=== PATIENT | female | born 1995 | race Caucasian/White ===

== ENCOUNTER 2017-09-12 18:41 | Emergency (ER) | payer OTHER ==
[~2017-09-12] VITALS: Ht 180.3 cm; Wt 68.0 kg
[2017-09-12] MEDS ORDERED: ADVIL (18:49)
[2017-09-12] MEDS ORDERED: IBUPROFEN (18:49)
--- NOTE | 2017-09-12 19:06 | NUR ---
sbar report to eliza castillo
--- NOTE | 2017-09-12 19:35 | NUR ---
Dr. Garces at bedside for MSE.
[2017-09-12] MEDS ORDERED: KETOROLAC TROMETHAMINE 15 MG INJ IV ONE (19:45)
[2017-09-12] MEDS ORDERED: IV NORMAL SALINE 1000 ML BAG IV ONE (19:45)
[2017-09-12] MEDS ORDERED: KETOROLAC TROMETHAMINE 15 MG INJ ONE (19:50)
--- NOTE | 2017-09-12 20:10 | NUR ---
Patient came to ER with mother, c/o abdominal pain from left pelvis to left lower abdomen, reports was at home studying for finals. Blood drawn by RN, IV in place and infusing normal saline, all meds ordered administered.
[2017-09-12 20:22] LABS: *BILIRUBIN,URIN NEGATIVE (NEGATIVE); *BLOOD, URINE Trace-intact (NEGATIVE); *CLARITY,URINE CLEAR (CLEAR); *COLOR,URINE YELLOW (YELLOW); *KETONES,URINE NEGATIVE (NEGATIVE); *PROTEIN,URINE NEGATIVE (NEGATIVE); *UROBILINOGEN,URINE 0.2 E.U./dl (NORMAL); LEUKOCYTE ESTERASE ,URINE NEGATIVE (NEGATIVE); NITRITE, URINE NEGATIVE (NEGATIVE); PH,URINE 7.5 (5.0-8.0); UGLUCOSE NEGATIVE (NEGATIVE)
[2017-09-12 20:24] LABS: BASOPHILS # (AUTO) 0.1 K/uL (0.0-8.0); BASOPHILS % (AUTO) 0.9 % (0.0-2.0); EOSINOPHILS # (AUTO) 0.1 K/uL (0.0-0.7); EOSINOPHILS % (AUTO) 2.1 % (0.0-7.0); HEMATOCRIT 43.5 % (31.2-41.9); HEMOGLOBIN 14.8 g/dL (10.9-14.3); LYMPHOCYTES # (AUTO) 1.9 K/uL (20.0-40.0); MEAN CORPUSCULAR HEMOGLOBIN 31.3 uug (24.7-32.8); MEAN CORPUSCULAR HGB CONC 34 g/dL (32.3-35.6); MEAN CORPUSCULAR VOLUME 91.7 fL (75.5-95.3); MONOCYTES # (AUTO) 0.4 K/uL (2.0-10.0); MONOCYTES % (AUTO) 7.2 % (0.0-11.0); NEUTROPHILS # (AUTO) 3.3 K/uL (1.8-8.9); NEUTROPHILS % (AUTO) 56.8 % (38.5-71.5); PLATELET COUNT (AUTO) 167 K/uL (179-408); RED BLOOD CELL COUNT(AUTO) 4.74 MIL/uL (3.63-4.92); WHITE BLOOD COUNT (AUTO) 5.8 K/uL (3.8-11.8)
[2017-09-12 20:27] LABS: BACTERIA,URINE NONE SEEN /HPF (NONE SEEN); RBC,URINE 0-3 /HPF (0-3); SQUAMOUS EPITHELIAL CELL,UR FEW /HPF (NONE SEEN); WBC,URINE 0-3 /HPF (0-3)
[2017-09-12 20:31] LABS: CREATININE 0.7 mg/dL (0.6-1.3); POTASSIUM 3.8 mmol/L (3.5-5.1)
[2017-09-12 20:37] LABS: BILIRUBIN,DIRECT 0.1 mg/dL (0.0-0.2); BILIRUBIN,TOTAL 0.8 mg/dL (0.2-1.0)
--- NOTE | 2017-09-12 20:40 | NUR ---
Patient reports feeling a little better, pain now a 5.
--- NOTE | 2017-09-12 21:20 | NUR ---
Ultrasound at bedside.
--- NOTE | 2017-09-12 22:45 | NUR ---
Patient discharged to home in stable conditon. Written and verbal after care instructions given. Patient verbalizes understanding of instructions. IV discontinued. Patient provided with lab and imaging results, and ultrasound CD. Patient ambulated out of ER with steady gait, VSS, no acute signs of distress, all belongings taken.
[2017-09-12 23:03] VITALS: BP 125/70
== END 2017-09-12 22:45 | disposition home or self-care (01) ==
LOC: ER 18:42
DX: N23 Unspecified renal colic (principal); Z79.1 Long term (current) use of non-steroidal anti-inflammatories (NSAID); Z79.899 Other long term (current) drug therapy
CPT/HCPCS: 36415; 70030-TC; 76770; 83690; 84703; 85025; 87086; A4663; J1885; J7030

== ENCOUNTER 2018-04-23 14:54 | Emergency (ER) | payer OTHER ==
[~2018-04-23] VITALS: Ht 180.3 cm; Wt 68.0 kg
[~2018-04-23 14:54] MED LIST: ADVIL; IBUPROFEN
[2018-04-23 15:23] LABS: BASOPHILS # (AUTO) 0.1 K/uL (0.0-8.0); BASOPHILS % (AUTO) 0.9 % (0.0-2.0); EOSINOPHILS # (AUTO) 0.1 K/uL (0.0-0.7); EOSINOPHILS % (AUTO) 0.9 % (0.0-7.0); HEMATOCRIT 39.6 % (31.2-41.9); HEMOGLOBIN 13.7 g/dL (10.9-14.3); LYMPHOCYTES # (AUTO) 1.3 K/uL (20.0-40.0); LYMPHOCYTES % (AUTO) 18.8 % (20.5-51.5); MEAN CORPUSCULAR HEMOGLOBIN 32.3 uug (24.7-32.8); MEAN CORPUSCULAR HGB CONC 35 g/dL (32.3-35.6); MEAN CORPUSCULAR VOLUME 93.2 fL (75.5-95.3); MONOCYTES # (AUTO) 0.5 K/uL (2.0-10.0); MONOCYTES % (AUTO) 7.3 % (0.0-11.0); NEUTROPHILS # (AUTO) 4.9 K/uL (1.8-8.9); NEUTROPHILS % (AUTO) 72.1 % (38.5-71.5); PLATELET COUNT (AUTO) 135 K/uL (179-408); RED BLOOD CELL COUNT(AUTO) 4.25 MIL/uL (3.63-4.92); WHITE BLOOD COUNT (AUTO) 6.7 K/uL (3.8-11.8)
[2018-04-23 15:44] LABS: CARBON DIOXIDE 27 mmol/L (21-32); CHLORIDE 105 mmol/L (98-107); CREATININE 0.7 mg/dL (0.6-1.3); GLUCOSE 96 mg/dL (74-106); POTASSIUM 4.2 mmol/L (3.5-5.1); UREA NITROGEN, BLOOD 18 mg/dL (7-18)
[2018-04-23 17:03] VITALS: BP 118/67
--- NOTE | 2018-04-23 17:09 | NUR ---
Patient discharged to home in stable conditon. Written and verbal after care instructions given. Patient verbalizes understanding of instructions. Copy of EKG,Labs,Xray given to patient.
== END 2018-04-23 17:08 | disposition home or self-care (01) ==
LOC: ER 14:54
DX: S70.02XA Contusion of left hip, initial encounter (principal); W19.XXXA Unspecified fall, initial encounter; Y93.89 Activity, other specified; Y92.89 Other specified places as the place of occurrence of the external cause; Y99.8 Other external cause status
CPT/HCPCS: 36415; 72170; 85025; 93005; A4663

== ENCOUNTER 2020-11-08 13:14 | Emergency (ER) | payer OTHER ==
[~2020-11-08] VITALS: Ht 180.3 cm; Wt 71.2 kg
--- NOTE | 2020-11-08 13:40 | NUR ---
Dr Oseguera at the bedside for MSE.
[2020-11-08 13:57] LABS: *BILIRUBIN,URIN NEGATIVE (NEGATIVE); *CLARITY,URINE CLEAR (CLEAR); *COLOR,URINE YELLOW (YELLOW); *KETONES,URINE NEGATIVE (NEGATIVE); *UROBILINOGEN,URINE 0.2 E.U./dl (NORMAL); LEUKOCYTE ESTERASE ,URINE NEGATIVE (NEGATIVE); NITRITE, URINE NEGATIVE (NEGATIVE); UGLUCOSE NEGATIVE (NEGATIVE)
[2020-11-08 14:03] LABS: *BLOOD, URINE TRACE (NEGATIVE)
[2020-11-08 14:15] LABS: BACTERIA,URINE NONE SEEN /HPF (NONE SEEN); SQUAMOUS EPITHELIAL CELL,UR FEW /HPF (NONE SEEN); WBC,URINE 0-3 /HPF (0-3)
[2020-11-08 14:18] LABS: BASOPHILS % (AUTO) 0.8 % (0.0-2.0); EOSINOPHILS # (AUTO) 0.1 K/uL (0.0-0.7); EOSINOPHILS % (AUTO) 1.9 % (0.0-7.0); HEMATOCRIT 38.1 % (31.2-41.9); HEMOGLOBIN 12.9 g/dL (10.9-14.3); LYMPHOCYTES # (AUTO) 1.5 K/uL (20.0-40.0); LYMPHOCYTES % (AUTO) 31.8 % (20.5-51.5); MEAN CORPUSCULAR HEMOGLOBIN 31.2 uug (24.7-32.8); MEAN CORPUSCULAR HGB CONC 34 g/dL (32.3-35.6); MONOCYTES # (AUTO) 0.3 K/uL (2.0-10.0); NEUTROPHILS # (AUTO) 2.8 K/uL (1.8-8.9); NEUTROPHILS % (AUTO) 58.5 % (38.5-71.5); PLATELET COUNT (AUTO) 158 K/uL (179-408); RED BLOOD CELL COUNT(AUTO) 4.14 MIL/uL (3.63-4.92); WHITE BLOOD COUNT (AUTO) 4.7 K/uL (3.8-11.8)
[2020-11-08 14:33] LABS: CARBON DIOXIDE 24 mmol/L (21-32); CHLORIDE 103 mmol/L (98-107); CREATININE 0.7 mg/dL (0.6-1.3); GLUCOSE 102 mg/dL (74-106); POTASSIUM 3.9 mmol/L (3.5-5.1); UREA NITROGEN, BLOOD 16 mg/dL (7-18)
[2020-11-08 14:40] LABS: ALANINE AMINOTRANSFERASE 19 U/L (14-59); ALKALINE PHOSPHATASE 42 U/L (50-136); ASPARTATE AMINOTRANSFERASE 13 U/L (15-37); BILIRUBIN,DIRECT 0.1 mg/dL (0.0-0.2); BILIRUBIN,TOTAL 0.6 mg/dL (0.2-1.0); LIPASE 84 U/L (73-393); TOTAL PROTEIN, SERUM 7.2 g/dL (6.4-8.2)
--- NOTE | 2020-11-08 14:55 | NUR ---
Pt resting in bed, NAD noted, awaiting test results.
[2020-11-08 15:13] VITALS: BP 120/78
--- NOTE | 2020-11-08 15:13 | NUR ---
Patient discharged to home in stable condition. Written and verbal after care instructions given. Patient verbalizes understanding of instructions. Stressed follow up or return to ER for worsening s/s.
== END 2020-11-08 15:14 | disposition home or self-care (01) ==
LOC: ER 13:14
DX: R10.2 Pelvic and perineal pain (principal)
CPT/HCPCS: 36415; 76856; 83690; 85025; A4663; J7030

== ENCOUNTER 2021-01-18 20:18 | Emergency (ER) | payer OTHER ==
[~2021-01-18] VITALS: Ht 180.3 cm; Wt 71.2 kg
--- NOTE | 2021-01-18 20:22 | NUR ---
Pt came in today after fainting and having a fall down the stairs at the work. Pt said she passed out on the stairs and doesn't remember what happened. Pt has left wrist pain 5/10. Pt's boyfriend is at the bedside. Pt. is stable, no signs of distress, no headache or vision changes. Will continue to monitor.
[2021-01-18] MEDS ORDERED: HYDROCODONE/APAP 5-325MG TABLET PO ONE ×2 (20:45→22:15)
[2021-01-18] MEDS ORDERED: HYDROCODONE/APAP 5-325MG TABLET ONE ×2 (20:52→22:14)
--- NOTE | 2021-01-18 21:04 | NUR ---
Patient taken to CT
[2021-01-18] MEDS ORDERED: HYDR-3980 PO (22:01)
--- NOTE | 2021-01-18 22:11 | NUR ---
Patient discharged to home in stable condition. Written and verbal after care instructions given. Patient verbalizes understanding of instructions. Stressed follow up or return to ER for worsening s/s. Walks with steady gait. No signs of distress. Boyfriend is driving her home.
[2021-01-18 22:18] VITALS: BP 128/65
== END 2021-01-18 22:19 | disposition home or self-care (01) ==
LOC: ER 20:19
DX: S06.0X0A Concussion without loss of consciousness, initial encounter (principal); S52.502A Unspecified fracture of the lower end of left radius, initial encounter for closed fracture; S52.602A Unspecified fracture of lower end of left ulna, initial encounter for closed fracture; W10.9XXA Fall (on) (from) unspecified stairs and steps, initial encounter; Y92.89 Other specified places as the place of occurrence of the external cause; Z87.442 Personal history of urinary calculi
CPT/HCPCS: 70450; 72125; 73110; A4663

== ENCOUNTER 2021-02-21 01:04 | Emergency (ER) | payer OTHER ==
[~2021-02-21] VITALS: Ht 180.3 cm; Wt 66.7 kg
[~2021-02-21 01:04] MED LIST changes: -ADVIL; +HYDR-3980 PO; -IBUPROFEN
[2021-02-21] MEDS ORDERED: ACETAMINOPHEN ES 500 MG TABLET PO ONE (01:15)
[2021-02-21] MEDS ORDERED: IV NORMAL SALINE 1000 ML BAG IV ONE (01:15)
--- NOTE | 2021-02-21 01:20 | NUR ---
Patient walked into ER c/o abdominal pain describing pain as burning pain that started about 5hrs ago with rectal bleeding stating "I was in the bathroom and bright red blood came out."
[2021-02-21 01:23] LABS: HEMATOCRIT 41.1 % (31.2-41.9); MEAN CORPUSCULAR HEMOGLOBIN 31.4 uug (24.7-32.8); MEAN CORPUSCULAR VOLUME 91.5 fL (75.5-95.3); PLATELET COUNT (AUTO) 187 K/uL (179-408)
[2021-02-21 01:35] LABS: CARBON DIOXIDE 30 mmol/L (21-32); CHLORIDE 104 mmol/L (98-107); CREATININE 0.7 mg/dL (0.6-1.3); GLUCOSE 102 mg/dL (74-106); UREA NITROGEN, BLOOD 25 mg/dL (7-18)
[2021-02-21 01:50] LABS: ALANINE AMINOTRANSFERASE 26 U/L (14-59); ALKALINE PHOSPHATASE 49 U/L (50-136); ASPARTATE AMINOTRANSFERASE 16 U/L (15-37); BILIRUBIN,DIRECT 0.1 mg/dL (0.0-0.2); BILIRUBIN,TOTAL 0.3 mg/dL (0.2-1.0); LIPASE 109 U/L (73-393); TOTAL PROTEIN, SERUM 7.8 g/dL (6.4-8.2)
[2021-02-21 02:10] LABS: *BILIRUBIN,URIN NEGATIVE (NEGATIVE); *CLARITY,URINE CLEAR (CLEAR); *COLOR,URINE AMBER (YELLOW); *KETONES,URINE NEGATIVE (NEGATIVE); *UROBILINOGEN,URINE 0.2 E.U./dl (NORMAL); LEUKOCYTE ESTERASE ,URINE NEGATIVE (NEGATIVE); NITRITE, URINE NEGATIVE (NEGATIVE); UGLUCOSE NEGATIVE (NEGATIVE)
[2021-02-21 02:11] LABS: *BLOOD, URINE TRACE (NEGATIVE)
[2021-02-21 02:17] LABS: *URINE HCG, QUAL NEGATIVE (NEGATIVE); BACTERIA,URINE NONE SEEN /HPF (NONE SEEN); SQUAMOUS EPITHELIAL CELL,UR MODERATE /HPF (NONE SEEN); WBC,URINE NONE SEEN /HPF (0-3)
[2021-02-21] MEDS ORDERED: IOHEXOL 300MG/ML 100 ML INFUS..BTL ONE (02:20)
[2021-02-21] MEDS ORDERED: SWABABLE VALVE TRANSFER SET EA MC ONE (02:20)
[2021-02-21] MEDS ORDERED: IV NORMAL SALINE 250 ML IV ONE (02:20)
[2021-02-21] MEDS ORDERED: CIPR500T5 PO (03:08)
[2021-02-21] MEDS ORDERED: IBUP-1955 PO (03:08)
[2021-02-21] MEDS ORDERED: METR-147 PO (03:08)
--- NOTE | 2021-02-21 03:20 | NUR ---
IV removed. Catheter intact and site benign. Pressure and 4x4 gauze applied to site. No bleeding noted.
[2021-02-21 03:24] VITALS: BP 115/68
== END 2021-02-21 03:31 | disposition home or self-care (01) ==
LOC: ER 01:08
DX: R10.32 Left lower quadrant pain (principal); K62.5 Hemorrhage of anus and rectum
CPT/HCPCS: 36415; 74177; 80048; 80076; 81001; 83690; 84702; 84703; 85025; 85730; 96360; 99285; Q9967; A4663; J7030; J7050

== ENCOUNTER 2022-07-09 21:24 | Emergency (ER) | payer OTHER ==
[~2022-07-09] VITALS: Ht 180.3 cm; Wt 64.0 kg
[~2022-07-09 21:24] MED LIST changes: +CIPR500T5 PO; +IBUP-1955 PO; +METR-147 PO
--- NOTE | 2022-07-09 22:56 | NUR ---
After being triaged, patient was placed back in the waiting room due to no beds available in the ER.
[2022-07-10 01:07] LABS: HEMATOCRIT 40.8 % (31.2-41.9); MEAN CORPUSCULAR HEMOGLOBIN 30.3 uug (24.7-32.8); MEAN CORPUSCULAR VOLUME 90.7 fL (75.5-95.3); PLATELET COUNT (AUTO) 231 K/uL (179-408)
[2022-07-10 01:16] LABS: CARBON DIOXIDE 29 mmol/L (21-32); CHLORIDE 102 mmol/L (98-107); CREATININE 0.7 mg/dL (0.6-1.3); GLUCOSE 102 mg/dL (74-106); UREA NITROGEN, BLOOD 15 mg/dL (7-18)
[2022-07-10] MEDS ORDERED: NAPR-1164 PO (02:01)
[2022-07-10] MEDS ORDERED: HYDR-3972 PO (02:01)
[2022-07-10 03:20] VITALS: BP 115/60
== END 2022-07-10 01:35 | disposition home or self-care (01) ==
LOC: ER 21:29
DX: G62.9 Polyneuropathy, unspecified (principal); S39.011A Strain of muscle, fascia and tendon of abdomen, initial encounter; X58.XXXA Exposure to other specified factors, initial encounter; Y92.89 Other specified places as the place of occurrence of the external cause; I47.9 Paroxysmal tachycardia, unspecified; I45.10 Unspecified right bundle-branch block
CPT/HCPCS: 36415; 83735; 84484; 85025; 93005; A4663